=== PATIENT | male | born 1970 | race Caucasian/White ===

== ENCOUNTER → 2018-01-25 07:15 | Outpatient (CLI) | payer BC, OTHER, SELFPAY ==
--- NOTE | 2018-01-25 | DI.US.S_ITS ---
PROCEDURE: US THYROID INDICATIONS: HISTORY THYROID CANCER TECHNIQUE: Real-time scanning was performed of the thyroid gland, with image documentation. COMPARISON: [facility], CT, NM THYROID MET IMAG WB THYROGN, 01/14/2017, 8:54. [facility], CT, SOFT TISSUE NECK W CONTRAST, 10/30/2016, 8:09. [facility], [place], THYROID, 09/10/2017, 10:36. [facility], [place], THYROID, 05/20/2017, 8:41. FINDINGS: Right: Right thyroid lobe has been surgically resected. At the right thyroid surgery bed there is an ovoid hyperechoic structure measuring up to 0.7 x 1.4 x 0.5 cm, with minimal internal vascularity. Left: The left thyroid lobe has been resected. At the thyroid resection bed there are 3 separate hyperechoic foci measuring 3 x 5 x 7 mm superiorly, as a new finding and 5 x 5 x 8 mm at the middle third (previously 5 x 7 x 9 mm) and finally at the lower third area measuring 8 x 5 x 4 mm (previously measuring 7 x 5 x 4 mm). Lymph nodes: No regional lymphadenopathy. IMPRESSION: 2 new echogenic foci are seen one on the right and one on the left in addition to 2 previously present echogenic foci in the thyroid resection bed on the left which have not changed. Etiology is uncertain, these do not have an appearance consistent with normal lymph nodes. Followup by contrast enhanced neck CT or MRI may be warranted. Dictated by: Kyle Anguiano M.D. on 01/25/2018 at 10:16 Approved by: Kyle Anguiano M.D. on 01/25/2018 at 10:21
== END ==
PROVIDERS: Family Provider Family Medicine; PCP Family Medicine; Visit Provider Family Medicine
DX: C73 Malignant neoplasm of thyroid gland (principal)
CPT/HCPCS: 76536

== ENCOUNTER 2018-11-25 08:23 | Day surgery (SDC) | payer BC, OTHER, SELFPAY ==
[2018-11-25] VITALS (8 sets, daily range): BP systolic 107–119; BP diastolic 72–85; PULSE 62–74; RESP 1–16; TEMP 36.4–36.8; O2SAT 15–99; BMI 27.6
--- NOTE | 2018-11-25 | PATH_ITS ---
[facility] Accession Number: [id number] . 01 Material submitted: . colon - COLON POLYP AT 10CM . 02 Diagnosis: Colon at 10 cm, Biopsy: Hyperplastic polyp. MRV/11/28/2018 . 02 Electronically signed: . Jayden Molina MD, PhD, Pathologist NPI- [id number] . 01 Gross description: . COLON POLYP AT 10CM: Received in formalin is 1 fragment(s) of s[place], soft tissue measuring 0.3 x 0.3 x 0.3 cm which is entirely submitted and submitted entirely in 1 cassette(s) /DMC /DMC . 02 Pathologist provided ICD-10: K63.5 . 02 CPT . 647870 Performed at: 01 [facility] [address] [id number] MD Kb De Luna MD Phone: [phone] Performed at: 02 [facility] [address] [place], [place] [id number] MD Elvia Zelaya MD Phone: [phone]
[2018-11-25] MEDS: SODIUM CHLORIDE 0.9% 1,000 ML 200 ML IV (09:08)
--- NOTE | 2018-11-25 09:46 | PM.HP.1 ---
History of Present Illness Date Patient Seen: 11/25/18 Time Patient Seen: 09:46 Chief complaint: [id number] Narrative: The patient is a 48-year-old here for his 1st screening colonoscopy. Patient History Medical History (Updated 11/25/18 @ 09:47 by Magdaleno Grace MD) History of prostate cancer (Resolved) History of thyroid cancer (Resolved) Social History household members: spouse Family & Social History Social History: household members spouse Meds Home Medications Medication Instructions Recorded Confirmed Type levothyroxine [Synthroid] 200 mcg PO QDAY #0 02/01/17 11/25/18 History sulfamethoxazole-trimethoprim 1 tab PO BID 11/25/18 11/25/18 History tadalafil [Cialis] 20 mg PO DAILY PRN 11/25/18 11/25/18 History Allergies Allergy/AdvReac Type Severity Reaction Status Date / Time No Known Drug Allergies Allergy Verified 11/25/18 08:50 Review of Systems Review of Systems All systems reviewed & are unremarkable except as noted in HPI and below Exam Vital Signs (past 8 hours): - 11/25/18 08:58 Temperature 97.6 F Pulse Rate 68 Respiratory Rate 16 Blood Pressure 119/77 Pulse Oximetry 98 Oxygen Delivery Method Room Air Narrative Exam Narrative: Patient alert no apparent distress. His lungs are clear to auscultation. No rales or rhonchi. Heart regular rate rhythm without murmur gallop. Abdomen is scaphoid soft nontender without mass. Alert and oriented x3. Assessment & Plan Assessment & Plan narrative: Patient for screening exam. I have discussed the procedure and the rationale with the patient including risks of bleeding, perforation which would necessitate a major operation, failure to find remove all lesions and the potential to tattoo. They appeared to understand and wished to proceed.
--- NOTE | 2018-11-25 09:49 | PM.PREOP ---
Pre-operative Note Interval Note History & Physical reviewed/Exam performed by Physician: Yes Changes to H&P: No ASA Class (for procedural sedation): II
[2018-11-25] MEDS: fentaNYL 250 MCG/5 ML INJ IV (10:21)
[2018-11-25] MEDS: MIDAZOLAM 5 MG/5 ML VIAL IV (10:21)
--- NOTE | 2018-11-25 10:25 | PM.OP.ENDO ---
Operative Date/Time/Diagnoses Date of procedure: 11/25/18 Time of procedure: 10:25 Post-op diagnosis: same (One tiny lesion 20 cm) Procedure & Clinicians Study performed: Colonoscopy with cold biopsy Same procedure as scheduled: Yes Indications: Screening Surgeon: Magdaleno Grace Procedure Notes SCOAP/Timeout: Performed Procedure in detail: The patient was placed in the left lateral decubitus position and underwent IV sedation directed by the surgeon consisting of fentanyl and Versed. Digital exam was remarkable for an absent prostate. The scope was inserted and advanced through the rectum into the sigmoid, descending, transverse, and ascending colon. The patient had to have a stiffener inserted, be repositioned, and have pressure applied in order to get this far.. The cecum was reached identified by the ileocecal valve and the appendiceal opening. The scope was gradually brought out. One Polyp was found at 20 cm from the anal verge. This was tiny and was biopsied to complete removal.. The scope ultimately was retroflexed in the rectum. The appearance was Cyrus bbl for prominent veins. There were no ulcerations however.. The scope was removed and the patient tolerated the procedure well Scope withdrawal time: 11.75 minutes Sedation minutes: 30 Findings: polyp (20 cm) Specimen(s): other (Polyp) Complications: none Recommendations: Colonscopy in 5 years (Unless this lesion is not neoplastic. In that case 10 years would be more appropriate.) Follow up: as needed Disposition: PACU
== END 2018-11-25 11:20 ==
LOC: ENDO 08:25
PROVIDERS: Family Provider Family Medicine; PCP Family Medicine; Visit Provider Specialist
PROC: 0DJD8ZZ Inspection of Lower Intestinal Tract, Via Natural or Artificial Opening Endoscopic (ICD-10-PCS; CPT 45378; principal; 2018-11-25 09:45)
DX: Z12.11 Encounter for screening for malignant neoplasm of colon (principal); K63.5 Polyp of colon
CPT/HCPCS: 45380; 99152; 99153; J2250; J3010

== ENCOUNTER → 2020-06-03 06:27 | Outpatient (CLI) | payer BC, OTHER, SELFPAY ==
--- NOTE | 2020-06-03 | DI.MRI.S_ITS ---
PROCEDURE: MR KNEE RT WO CON INDICATIONS: Pain in right knee TECHNIQUE: Noncontrast sagittal PD fast spin echo and T2 fast spin echo with fat saturation, sagittal 3-D FLASH with fat saturation; coronal T1 spin echo and PD fast spin echo with fat saturation, and axial PD fast spin echo with fat saturation through the knee. COMPARISON: None. FINDINGS: Image quality: Excellent. Menisci: The medial and lateral menisci demonstrate normal morphology and internal signal. The meniscal root ligaments appear intact. Cruciate ligaments: The anterior and posterior cruciate ligaments appear intact. Medial structures: The medial collateral ligament appears intact. The semimembranosus tendon insertions and meniscocapsular junction appear intact. Visualized portions of the pes anserinus tendons appear normal. No abnormal bursal fluid. Lateral structures: The lateral collateral ligament, long and short heads of the biceps femoris tendon appear intact. The popliteus tendon appears normal. Iliotibial band appears normal. Anterior structures: The quadriceps and patellar tendons appear intact. Patellar alignment is normal. No femoral trochlear dysplasia or ventral trochlear prominence. No edema in the infrapatellar fat pad. Bones and cartilage: No bone marrow contusions or fractures. There is a small cartilage defect involving the medial facet of femoral trochlear (series 8, image [id number]; series 9 and 10, image 12; series 6 and 7, image 22) with subchondral edema and cyst formation. There is mild cartilage signal degeneration of the medial and lateral femorotibial compartments. Joint space: There is small knee joint fluid. No Rhodes's cyst. Normal appearing synovial plicae are incidentally noted. IMPRESSION: 1. A small cartilage defect involving the medial facet of femoral trochlear with subchondral edema and cyst formation. 2. Small knee joint effusion. Dictated by: Dari Sutton M.D. on 06/03/2020 at 10:24 Approved by: Dari Sutton M.D. on 06/03/2020 at 11:52
== END ==
PROVIDERS: Family Provider Family Medicine; PCP Student in an Organized Health Care Education/Training Program; Referring Provider Student in an Organized Health Care Education/Training Program; Visit Provider Student in an Organized Health Care Education/Training Program
DX: M25.561 Pain in right knee (principal); M25.461 Effusion, right knee
CPT/HCPCS: 73721

== ENCOUNTER 2020-07-14 10:46 | Emergency (ER) | payer BC, OTHER, SELFPAY ==
--- NOTE | 2020-07-14 10:54 | ED.URI ---
HPI - URI/Sore Throat General Chief Complaint: Recheck/Abnormal Lab/Rx Stated Complaint: Exposure to COVID 5 Days ago Time Seen by Provider: 07/14/20 10:51 Source: patient Mode of arrival: Ambulatory Limitations: no limitations History of Present Illness HPI Narrative: Patient is a 50-year-old male who has been exposed to COVID-19. 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 He states that they do not wear masks while flying due to communication. He presents today for a COVID test. He is completely asymptomatic. 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 He is quarantined based on company policy. Related Data Home Medications Medication Instructions Recorded Confirmed levothyroxine [Synthroid] 200 mcg PO QDAY #0 02/01/17 11/25/18 sulfamethoxazole-trimethoprim 1 tab PO BID 11/25/18 11/25/18 tadalafil [Cialis] 20 mg PO DAILY PRN 11/25/18 11/25/18 Allergies Allergy/AdvReac Type Severity Reaction Status Date / Time No Known Drug Allergies Allergy Verified 11/25/18 08:50 Review of Systems Review of Systems Narrative: GENERAL: Denies chills, fatigue, malaise, fever, sweats, travel HEENT: Denies sinus pain, ear pain, sore throat, difficulty swallowing, neck pain RESPIRATORY: Denies dyspnea, cough, wheezing, hemoptysis, sputum. CARDIOVASCULAR: Denies chest pain, palpitations, orthopnea, edema GASTROINTESTINAL: Denies nausea, vomiting, abdominal pain, diarrhea, constipation, melena. : Denies dysuria, frequency, incontinence, hematuria, urinary retention, flank pain. MUSCULOSKELETAL: Denies weakness, joint pain, or bony pain SKIN: No rash, no erythema, no pruritus NEUROLOGIC: Denies weakness, dizziness, headache, numbness, change in speech, confusion PSYCHIATRIC: No concerning psychosocial issues. 12 point review of systems is negative except for those stated above and HPI Patient History Medical History History of prostate cancer History of thyroid cancer Social History household members: spouse Smoking Status: Never smoker Exam Initial Vital Signs Initial Vital Signs: Vital Signs Temperature 96.8 F L 07/14/20 11:09 Pulse Rate 80 07/14/20 11:09 Respiratory Rate 16 07/14/20 11:09 Blood Pressure 136/87 07/14/20 11:09 Pulse Oximetry 99 07/14/20 11:09 GENERAL: Well-appearing, well-nourished and in no acute distress. HEENT: Head atraumatic,EOMI, pupils reactive, face symmetric, moist mucous membranes CARDIOVASCULAR: Regular rate and rhythm without murmurs, rubs or gallops. RESPIRATORY: Breath sounds equal bilaterally, no wheezes rales or rhonchi. EXTREMITIES: Normal range of motion, no clubbing or edema. Neurovascularly intact NEUROLOGICAL: Alert and oriented x4.Normal gait and speech. SKIN: Warm, dry, no laceration, no petechiae, no rashes or lesions. Course Orders Ordered: ED Orders 07/14/20 11:00 COVID19 Stat Vital Signs Vital signs: Vital Signs - 8 hr 07/14/20 11:09 Temperature 96.8 F L Pulse Rate 80 Respiratory Rate 16 Blood Pressure 136/87 Pulse Oximetry 99 MDM - URI/Sore Throat Lab Data Labs: Lab Results 07/14/20 Range/Units 11:00 COVID-19 PCR Negative (Negative) [facility] Narrative Medical decision making narrative: Patient is asymptomatic but has likely had a positive exposure. His COVID test is negative. I still recommend that he quarantine for the full 10 days along with his . Discharge Plan Departure Patient Disposition: Home Clinical Impression: Exposure to 2019-nCoV Instructions: Can COVID-19 be prevented? Activity Restrictions/Additional Instructions: *You have been diagnosed with exposure to COVID *What to do: Please continue to quarantine. I recommend that both you and your stay home and self quarantine for the full 10 days. *Continue to take medications as directed *Follow up with your primary care provider in 2-3 days *Return to ER if you should have cough, fever, shortness of breaths or any new, worsening or concerning symptoms Prescriptions: No Action levothyroxine [Synthroid] 200 MCG tablet 200 mcg PO QDAY Qty: 0 RF: 0 sulfamethoxazole-trimethoprim 400-80 mg Tablet 1 tab PO BID RF: 0 tadalafil [Cialis] 20 mg Tablet 20 mg PO DAILY PRN (Reason: Sexual Activity) RF: 0 Referrals: [facility] [Provider Group] Cas Friedman DO [Primary Care Provider] -
[2020-07-14 11:09] VITALS: BP 136/87; PULSE 80; RESP 16; TEMP 36; O2SAT 99
--- NOTE | 2020-07-14 11:16 | PC.NURSE ---
patient states he has no symptoms for covid, but was closely exposed 5 days ago and wants tested.
[2020-07-14 11:45] LABS: COVID19 -Nasal RAPID Negative (Negative)
[2020-07-14 12:10] VITALS: BP 135/85; PULSE 65; RESP 18; O2SAT 98
== END 2020-07-14 12:11 | disposition home or self-care (01) ==
PROVIDERS: Emergency Provider Emergency Medicine; Family Provider Family Medicine; PCP Student in an Organized Health Care Education/Training Program
DX: Z03.818 Encounter for observation for suspected exposure to other biological agents ruled out (principal)
CPT/HCPCS: 87635; 99281; 99282

== ENCOUNTER → 2024-08-28 10:33 | Outpatient (CLI) | payer BC, OTHER, SELFPAY ==
--- NOTE | 2024-08-28 10:39 | DI.US.S_ITS ---
PROCEDURE: US ABDOMEN LIMITED INDICATIONS: LEFT LOWER QUADRANT PAIN TECHNIQUE: Real-time scanning was performed of the left groin, with image documentation. COMPARISON: None. FINDINGS/IMPRESSION: Targeted ultrasound of the left groin demonstrates a fat containing left inguinal hernia. The sac measures 1.8 x 1.3 x 1.3 centimeter. The defect measures approximately 1 centimeter. Dictated by: Parveen Green M.D. on 08/28/2024 at 11:43 Approved by: Parveen Green M.D. on 08/28/2024 at 11:45
== END ==
PROVIDERS: Family Provider Family Medicine; Referring Provider Nurse Practitioner Family; Visit Provider Nurse Practitioner Family
DX: K40.90 Unilateral inguinal hernia, without obstruction or gangrene, not specified as recurrent (principal); R10.32 Left lower quadrant pain
CPT/HCPCS: 76705

== ENCOUNTER → 2025-07-11 11:45 | Outpatient (CLI) | payer OTHER, BC, SELFPAY ==
--- NOTE | 2025-07-11 11:46 | DI.US.S_ITS ---
PROCEDURE: US HERNIA INDICATIONS: Unilateral inguinal hernia TECHNIQUE: Real-time focused scanning was performed of the inguinal region, with image documentation. COMPARISON: None. FINDINGS AND IMPRESSION: Fat containing left inguinal hernia seen with Valsalva, sac measuring 2.3 x 2 cm (slightly increased), defect measuring 1 cm (stable). Dictated by: Arvin Elizabeth M.D. on 07/11/2025 at 16:06 Approved by: Arvin Elizabeth M.D. on 07/11/2025 at 16:07
== END ==
LOC: US 11:45
PROVIDERS: Family Provider Family Medicine; Referring Provider Nurse Practitioner Family; Visit Provider Nurse Practitioner Family
DX: K40.90 Unilateral inguinal hernia, without obstruction or gangrene, not specified as recurrent (principal)
CPT/HCPCS: 76705